=== PATIENT | male | born 1940 | race Caucasian/White ===

== ENCOUNTER 2017-01-25 21:09 | Emergency (ER) ==
[2017-01-25 21:36] VITALS: BP 157/93; TEMP 97.6; BMI 31.1
[2017-01-25] MEDS ORDERED: NORCO 5-325 PO STA (21:39)
--- NOTE | 2017-01-25 21:40 | DI ---
EXAM: Three views of the right fourth digit. HISTORY: Trauma. COMPARISONS: None. FINDINGS: A comminuted mildly displaced fracture of the fourth middle phalanx is seen. There is like ly interarticular extension of fracture into the fourth proximal interphalangeal joint. No evidence of dislocation is seen. There is moderate interphalangeal joint space narrowing. Soft tissue swelli ng of the fourth digit is seen. IMPRESSION: Comminuted mildly displaced fourth middle phalanx fracture with interarticular extension. Osteoarthritis of the fingers. Fourth digit soft tissue swelling.
--- NOTE | 2017-01-25 21:42 | ED.PDOC ---
General ED Provider: Dr. DAFNE BOYKIN-ER Chief Complaint: Finger Pain/Injury Stated Complaint: i hurt my finger Time Seen by Physician: 21:40 Mode of Arrival: Walk-In Information Source: Patient Exam Limitations: No limitations Primary Care Provider: PATRICE OLIVIA Nursing and Triage Documentation Reviewed and Agree: Yes Musculoskeletal Complaint Exam - Hand/Wrist Complaint/Exam Location of Pain: Reports: Right, Digit #4 Mechanism of Injury: Reports: Trauma Onset/Duration: 18hrs Symptoms Are: Still present Onset of Pain: Reports: Immediate Initial Severity: Mild Current Severity: Mild Location: Reports: Discrete Character: Reports: Dull Alleviating: Reports: Rest Aggravating: Reports: Movement Associated Signs and Symptoms: Reports: Swelling, Bruising. Denies: Redness, Fever, Weakness, Numbness, Tingling Dominant Hand: Right Hand/Wrist Findings: Present: Swelling, Ecchymosis Tenderness: Present: Phalanx Compartment Syndrome Risk Factors: Present: Pain Differential Diagnoses: Closed Fracture Review of Systems - Review Of Systems Constitutional: Reports: No symptoms Eyes: Reports: No symptoms Ears, Nose, Mouth, Throat: Reports: No symptoms Respiratory: Reports: No symptoms Cardiac: Reports: No symptoms GI: Reports: No symptoms : Reports: No symptoms Musculoskeletal: Reports: Joint pain Skin: Reports: No symptoms Neurological: Reports: No symptoms Endocrine: Reports: No symptoms Hematologic/Lymphatic: Reports: No symptoms All Other Systems: Reviewed and Negative Past Medical History - Past Medical History Previously Healthy: Yes Endocrine: Reports: None Cardiovascular: Reports: Hypertension Respiratory: Reports: None Hematological: Reports: None Gastrointestinal: Reports: None Genitourinary: Reports: None Neuro/Psych: Reports: None Musculoskeletal: Reports: None Cancer: Reports: None - Surgical History General Surgical History: Reports: None - Family History Family History: Reports: None - Social History Smoking Status: Former smoker Hx Substance Use: No Alcohol Screening: None Lives: With family - Immunizations Tetanus Shot up to Date: Yes Physical Exam - Physical Exam Appearance: Well-appearing, No pain distress, Well-nourished Pain Distress: Mild Eyes: BREE, EOMI, Conjunctiva clear ENT: Ears normal, Nose normal, Oropharynx normal Neck: Supple Respiratory: Airway patent, Breath sounds clear, Breath sounds equal, Respirations nonlabored Cardiovascular: RRR, Pulses normal, No rub, No murmur GI/: Soft Musculoskeletal: Limited ROM Skin: Warm, Dry, Normal color Neurological: Sensation intact, Motor intact, Reflexes intact, Cranial nerves intact, Alert, Oriented Psychiatric: Affect appropriate, Mood appropriate Interpretation - Radiology Interpretation Radiology Interpretation By: ED Physician Radiology Results: Positive Critical Care Note - Critical Care Note Total Time (mins): 0 Course - Course Orders, Labs, Meds: Orders Category Date Time Status Splint [ED SPLINT APPLICATION] .ONCE EMERGENCY 01/25/17 21:39 Active Hydrocodone Bit/Acetaminophen [Moxee 5-325] MEDS 01/25/17 21:39 Discontinued 1 tab PO ONCE STA FINGER(S) RIGHT MIN 2V Stat RADS 01/25/17 21:22 Completed Medications Discontinued Medications Generic Name Dose Route Start Last Admin Trade Name Freq PRN Reason Stop Dose Admin Acetaminophen/Hydrocodone Bitart 1 tab 01/25/17 21:39 01/25/17 21:43 Mox[place] 5-325 PO 01/25/17 21:40 1 tab ONCE STA Administration Vital Signs: Temp Pulse Resp BP Pulse Ox 01/25/17 21:10 97.6 F 78 20 157/93 H 96 Departure - Departure Time of Disposition: 21:42 Disposition: HOME SELF-CARE Discharge Problem: Fracture of middle phalanx of right ring finger Qualifiers: Encounter type: initial encounter Fracture type: closed Fracture alignment: displaced Qualified Code(s): S62.624A - Displaced fracture of medial phalanx of right ring finger, initial encounter for closed fracture Instructions: Finger Fracture (ED) Condition: Good Pt referred to PMD for follow-up: Yes Additional Instructions: stay in splint--norco 7.5mg q 4hrs prn pain #10--see dr olivia tomorrow to arrange ortho referral Allergies/Adverse Reactions: Allergies No Known Allergies Allergy (Verified 01/25/17 21:15) Home Medications: Ambulatory Orders Amlodipine Besylate [Norvasc] 2.5 mg PO DAILY 01/25/17 Disposition Discussed With: Patient, Family
== END 2017-01-25 21:53 | disposition home or self-care (01) ==
LOC: ED 21:09
DX: S62.624A Displaced fracture of middle phalanx of right ring finger, initial encounter for closed fracture (principal); W10.9XXA Fall (on) (from) unspecified stairs and steps, initial encounter
CPT/HCPCS: 99282

== ENCOUNTER 2017-06-21 12:56 | Emergency (ER) ==
[2017-06-21 13:09] VITALS: BP 164/100; TEMP 97.5; BMI 31.6
[2017-06-21] MEDS ORDERED: LIDOCAINE HCL 1% SDV ONE (14:04)
--- NOTE | 2017-06-21 14:06 | ED.PDOC ---
General ED Provider: Dr. DAFNE SAUER Chief Complaint: Head Laceration Stated Complaint: Was walking into a shed and struck his head resulting in a laceration to his parietal scalp region. Denies LOC, Nausea or vomiting. No altered mental status Time Seen by Physician: 13:50 Mode of Arrival: Walk-In Information Source: Patient Exam Limitations: No limitations Primary Care Provider: PATRICE PERRY Nursing and Triage Documentation Reviewed and Agree: Yes Reviewed sepsis parameters & appropriate labs ordered?: Yes System Inflammatory Response Syndrome: Not Applicable Sepsis Protocol: For patient's 13 years and over: Temp is 96.8 and below OR 101 and greater Pulse >90 BPM Resp >20/minute Acutely Altered Mental Status Are patient's symptoms suggestive of a new infection, such as: -Pneumonia -Skin, Soft Tissue -Endocarditis -UTI -Bone, Joint Infection -Implantable Device -Acute Abdominal Infection -Wound Infection -Meningitis -Blood Stream Catheter Infection -Unknown System Inflammatory Response Syndrome: Not Applicable Trauma/Injury Complaint Exam - Head Injury Complaint/Exam Location of Pain: Reports: Left, Scalp Mechanism of Injury: Reports: Trauma Symptoms Are: Still present Initial Severity: Mild Current Severity: Mild Character: Reports: Sharp Aggravating: Reports: None Alleviating: Reports: None Associated Signs and Symptoms: Denies: Confusion, Memory loss, Seizure, Epistaxis, Dental malocclusion, Neck pain Loss of Consciousness: None Related History: Reports: Similar episode SDH Risk Factors: Present: None Cervical Spine Injury Risk Factors: Present: None Related Surgical History: Reports: None Review of Systems - Review Of Systems Constitutional: Reports: No symptoms Eyes: Reports: No symptoms Ears, Nose, Mouth, Throat: Reports: No symptoms Respiratory: Reports: No symptoms Cardiac: Reports: No symptoms GI: Reports: No symptoms : Reports: No symptoms Musculoskeletal: Reports: No symptoms Skin: Reports: Other (scalp laceration ). Denies: Lesions Neurological: Reports: No symptoms, Anxiety Endocrine: Reports: No symptoms Hematologic/Lymphatic: Reports: No symptoms All Other Systems: Reviewed and Negative Past Medical History - Past Medical History Previously Healthy: Yes Endocrine: Reports: None Cardiovascular: Reports: Hypertension Respiratory: Reports: None Hematological: Reports: None Gastrointestinal: Reports: None Genitourinary: Reports: None Neuro/Psych: Reports: None Musculoskeletal: Reports: None Cancer: Reports: None - Surgical History General Surgical History: Reports: None - Family History Family History: Reports: None - Social History Smoking Status: Former smoker Hx Substance Use: No Alcohol Screening: None - Immunizations Tetanus Shot up to Date: Yes (1 year) Physical Exam - Physical Exam Appearance: Well-appearing Ill-appearing: None Pain Distress: Mild Eyes: BREE, EOMI, Conjunctiva clear ENT: Ears normal, Nose normal, Oropharynx normal Neck: Supple Respiratory: Airway patent, Breath sounds clear, Breath sounds equal, Retractions Cardiovascular: RRR, Pulses normal, No rub GI/: Soft, Nontender, No masses, Bowel sounds normal Musculoskeletal: Normal strength, ROM intact Skin: Warm (3 cm linear laceration to frontal parietal scalp region -slightly to the left) Neurological: Sensation intact, Motor intact, Reflexes intact, Cranial nerves intact, Alert, Oriented Psychiatric: Affect appropriate, Mood appropriate Procedures - Laceration/Wound Repair New Laceration Wound Description: Linear Wound Length (cm): 3.5 cm Wound Width: 5 mm Wound Depth: 2.5 mm Wound Explored: Clean Wound Irrigated: Yes Wound Prep: Saline, Hibiclens, Betadine, Scrub Anesthesia: Lidocaine Wound Debrided: Minimal Wound Repaired With: Avni (8) Number of Sutures: 8 Critical Care Note - Critical Care Note Total Time (mins): 0 Course - Course Vital Signs: Temp Pulse Resp BP Pulse Ox 06/21/17 12:57 97.5 F L 76 20 164/100 H 94 L Departure - Departure Time of Disposition: 14:35 Disposition: HOME SELF-CARE Discharge Problem: Scalp laceration Qualifiers: Encounter type: initial encounter Qualified Code(s): S01.01XA - Laceration without foreign body of scalp, initial encounter Condition: Good Pt referred to PMD for follow-up: Yes (1 week) IPMP verified?: No Additional Instructions: Follow wound care instructions Take antibiotics as directed Take analgesics as needed Follow up PCP 1 wk Allergies/Adverse Reactions: Allergies No Known Allergies Allergy (Verified 01/25/17 21:15) Home Medications: Ambulatory Orders Amlodipine Besylate [Norvasc] 2.5 mg PO DAILY 01/25/17 Cephalexin [Keflex] 500 mg PO Q12HR #14 capsule 06/21/17 Disposition Discussed With: Patient, Family
== END 2017-06-21 14:45 | disposition home or self-care (01) ==
LOC: ED 12:56
DX: S01.01XA Laceration without foreign body of scalp, initial encounter (principal); W22.8XXA Striking against or struck by other objects, initial encounter
CPT/HCPCS: 99283

== ENCOUNTER 2018-10-11 13:51 | Emergency (ER) ==
[2018-10-11 13:55] VITALS: BP 134/85; TEMP 98.1; BMI 27.6
[2018-10-11] MEDS ORDERED: DUONEB NEB STA (14:11)
--- NOTE | 2018-10-11 14:12 | ED.PDOC ---
General ED Provider: Dr. SHANNEN BELL Chief Complaint: Cough Stated Complaint: Cough, congestion, no respiratory distress. Time Seen by Physician: 14:00 Mode of Arrival: Walk-In Information Source: Patient, Family Exam Limitations: No limitations Primary Care Provider: PATRICE PERRY Nursing and Triage Documentation Reviewed and Agree: Yes Does patient meet sepsis criteria?: No System Inflammatory Response Syndrome: Not Applicable Sepsis Protocol: For patient's 13 years and over: Temp is 96.8 and below OR 101 and greater Pulse >90 BPM Resp >20/minute Acutely Altered Mental Status Are patient's symptoms suggestive of a new infection, such as: -Pneumonia -Skin, Soft Tissue -Endocarditis -UTI -Bone, Joint Infection -Implantable Device -Acute Abdominal Infection -Wound Infection -Meningitis -Blood Stream Catheter Infection -Unknown Respiratory Complaint Exam - Respiratory Complaint/Exam Onset/Duration: 7 days Symptoms Are: Resolved Timing: Intermittent Initial Severity: Mild Current Severity: Mild Location: Nose, Throat, Chest Character: Reports: Non-productive cough Aggravating: Reports: URI Alleviating: Reports: Spontaneous resolution Associated Signs and Symptoms: Reports: URI. Denies: Rapid breathing, Dyspnea, Fever, Chills, Chest pain, Pleuritic chest pain, Wheezing, Hemoptysis, Dizziness , Calf pain, Calf swelling, Edema, Nasal congestion, Hoarseness, Sinus discomfort, Vomiting, Sore throat, Weight loss, Decreased oral intake, Increased thirst, Increased appetite, Increased urination Related History: Reports: Similar episode History of Healthcare-Acquired Pneumonia: No Related Surgical History: Reports: None Pulmonary Embolism Risk Factors: None Cardiac Risk Factors: Reports: Hypertension Pseudomonas Risk Factors: Reports: None Tuberculosis Risk Factors: Reports: None Status Asthmaticus Risk Factors: Reports: None Home Oxygen Use: No Recent Stress Test: No Recent Echo/LV Function: No Current Antibiotic Use: No Current Asthma Medication Use: No Respiratory Distress: None Inadequate Respiratory Effort: No Dysphagia Present: No Stridor Present: No JVD Present: No Accessory Muscle Use: No Retractions: Not Present Diminished Breath Sounds: No Sinus Tenderness: None Grunting Respirations: No Kussmaul Respirations: No Differential Diagnoses: Pneumonia, Bronchitis Review of Systems - Review Of Systems Constitutional: Reports: No symptoms Eyes: Reports: No symptoms Ears, Nose, Mouth, Throat: Reports: No symptoms Respiratory: Reports: Cough Cardiac: Reports: No symptoms GI: Reports: No symptoms : Reports: No symptoms Musculoskeletal: Reports: No symptoms Skin: Reports: No symptoms Neurological: Reports: No symptoms Endocrine: Reports: No symptoms Hematologic/Lymphatic: Reports: No symptoms All Other Systems: Reviewed and Negative Past Medical History - Past Medical History Previously Healthy: Yes Endocrine: Reports: None Cardiovascular: Reports: Hypertension Respiratory: Reports: None Hematological: Reports: None Gastrointestinal: Reports: None Genitourinary: Reports: None Neuro/Psych: Reports: None Musculoskeletal: Reports: None Cancer: Reports: None - Surgical History General Surgical History: Reports: None - Family History Family History: Reports: None - Social History Smoking Status: Former smoker Hx Substance Use: No Alcohol Screening: None Physical Exam - Physical Exam Appearance: Well-appearing, No pain distress, Well-nourished Eyes: BREE, EOMI, Conjunctiva clear ENT: Ears normal, Nose normal, Oropharynx normal Respiratory: Rhonchi Cardiovascular: RRR, Pulses normal, No rub, No murmur GI/: Soft, Nontender, No masses, Bowel sounds normal, No Organomegaly Musculoskeletal: Normal strength, ROM intact, No edema, No calf tenderness Skin: Warm, Dry, Normal color Neurological: Sensation intact, Motor intact, Reflexes intact, Cranial nerves intact, Alert, Oriented Psychiatric: Affect appropriate, Mood appropriate Re-Evaluation - Re-Evaluation Time of Re-Evaluation: 14:29 Status: Improved Vital Signs Stable: Yes Pain Level: 0 Appearance: NAD Lungs: Clear Skin: Warm and Dry Neuro: Alert and Oriented X3 CV: RRR Additional Comments: no respiratory distress, chest pain, no acute while in ER Critical Care Note - Critical Care Note Total Time (mins): 0 Course - Course Orders, Labs, Meds: Lab Review 10/11/18 15:30 Puncture Site R rad O2 Saturation 96.0 ABG pH 7.431 ABG pCO2 34.8 L ABG pO2 82.0 L ABG HCO3 23.1 ABG Total CO2 24 ABG Base Excess -1 Neto Test + FiO2 % 21.0 Orders Category Date Time Status ABG DRAW REQUEST Stat CARDIO 10/11/18 15:13 Completed NEBULIZER TREATMENT Stat CARDIO 10/11/18 14:11 Completed ABG Stat LAB 10/11/18 15:30 Completed Ceftriaxone Sodium [Rocephin] MEDS 10/11/18 15:14 Discontinued 1 gm IM ONCE STA Doxycycline Hyclate MEDS 10/11/18 15:39 Discontinued 100 mg PO ONCE ONE Ipratropium/Albuterol Neb [Duoneb] MEDS 10/11/18 14:11 Discontinued 1 vial NEB ONCE STA Lidocaine HCl/Pf [Lidocaine HCl 1% Sdv] MEDS 10/11/18 15:14 Discontinued 2.1 ml IM ONCE STA CHEST, 2 VIEWS PA & LAT Stat RADS 10/11/18 14:11 Completed Medications Discontinued Medications Generic Name Dose Route Start Last Admin Trade Name Ronda PRN Reason Stop Dose Admin Albuterol/Ipratropium 1 vial 10/11/18 14:11 10/11/18 14:35 Duoneb NEB 10/11/18 14:12 1 vial ONCE STA Administration Ceftriaxone Sodium 1 gm 10/11/18 15:14 10/11/18 15:44 Rocephin IM 10/11/18 15:15 1 gm ONCE STA Administration Doxycycline Hyclate 100 mg 10/11/18 15:39 10/11/18 15:44 Doxycycline Hyclate PO 10/11/18 15:40 100 mg ONCE ONE Administration Lidocaine HCl 2.1 ml 10/11/18 15:14 10/11/18 15:44 Lidocaine Hcl 1% Sdv IM 10/11/18 15:15 2.1 ml ONCE STA Administration Vital Signs: Temp Pulse Resp BP Pulse Ox 10/11/18 13:51 98.1 F 81 20 134/85 94 L Departure - Departure Time of Disposition: 15:54 Disposition: HOME SELF-CARE Discharge Problem: Cough, Pneumonitis Instructions: Pneumonitis (ED) Condition: Good Pt referred to PMD for follow-up: Yes IPMP verified?: No Additional Instructions: Please call your Family Physician as soon as possible to schedule a follow-up appointment. If you are short of breath RETURN TO THE EMERGENCY ROOM. Allergies/Adverse Reactions: Allergies pneumococcal vaccine [From Prevnar 13 (PF)] Adverse Reaction (Verified 10/11/18 13:56) Home Medications: Ambulatory Orders Amlodipine Besylate [Norvasc] 2.5 mg PO DAILY 01/25/17 Sotalol HCl [Sotalol] 40 mg PO BID 03/21/18
--- NOTE | 2018-10-11 14:44 | DI ---
EXAM: Two views of the chest. History: Cough. Comparison: Chest radiograph 12/06 2008. Findings: Heart size is normal. Patchy left lung infiltrates. No appreciable pleural fluid and no pneumothorax. Large anterior osteophytes within the thoracic spine. Impression: Patchy left lung infiltrate suspicious for pneumonia
[2018-10-11] MEDS ORDERED: LIDOCAINE HCL 1% SDV IM STA (15:14)
[2018-10-11] MEDS ORDERED: ROCEPHIN IM STA (15:14)
[2018-10-11] MEDS ORDERED: DOXYCYCLINE HYCLATE PO ONE (15:39)
[2018-10-11] MEDS ORDERED: DOXYCYCLINE HYCLATE PO SCH (16:00)
== END 2018-10-11 16:04 | disposition home or self-care (01) ==
LOC: ED 13:51
DX: J18.9 Pneumonia, unspecified organism (principal); I10 Essential (primary) hypertension
CPT/HCPCS: 82803; 94640; 96372; 99283